=== PATIENT | female | born 1985 | race Caucasian/White ===

== ENCOUNTER 2018-07-31 07:56 | Emergency (ER) | payer MEDICARE, OTHER ==
[~2018-07-31] VITALS: Ht 167.6 cm; Wt 90.7 kg
[~2018-07-31 07:56] MED LIST: ALBU90OI; ALBU90OI INH; ALPR1 PO; CRUTCH4 USE; HYDACE5 PO; LEVSOD50 PO; LORA1 PO; MULVITMINE PO; NAPR500 PO; NAPR550 PO; OXYC10TA19; PREN-16 PO; PRENZ PO; PROM25 PO; Percocet 5-3251 EACH PO
[2018-07-31] MEDS ORDERED: ATEN50 PO (08:24)
[2018-07-31] MEDS ORDERED: Mobic15 MG PO (08:24)
[2018-07-31] MEDS ORDERED: CYCL10 PO (08:24)
[2018-07-31] MEDS ORDERED: GABA300 PO (08:24)
[2018-07-31] MEDS ORDERED: Ventolin/Prove6.7 GM (08:24)
[2018-07-31] MEDS ORDERED: IBUP800 PO (08:46)
[2018-07-31] MEDS ORDERED: Cleocin HCl300 MG PO (08:46)
[2018-07-31] MEDS ORDERED: HYDR1TAB94 PO (08:46)
== END 2018-07-31 09:12 | disposition home or self-care (01) ==
LOC: ER 07:56
DX: J34.0 Abscess, furuncle and carbuncle of nose (principal); F17.210 Nicotine dependence, cigarettes, uncomplicated; J45.909 Unspecified asthma, uncomplicated; Z79.899 Other long term (current) drug therapy
CPT/HCPCS: 96372; 99283-25; J1885

== ENCOUNTER → 2018-08-04 | Outpatient (CLI) | payer MEDICARE, OTHER ==
[~2018-08-04] MED LIST changes: +ATEN50 PO; +CYCL10 PO; +Cleocin HCl300 MG PO; +GABA300 PO; +HYDR1TAB94 PO; +IBUP800 PO; +Mobic15 MG PO; +Ventolin/Prove6.7 GM
== END | disposition home or self-care (01) ==
LOC: LAB EV 15:31 → LAB SHORT 15:31
DX: L03.211 Cellulitis of face (principal)
CPT/HCPCS: 87070

== ENCOUNTER → 2018-10-21 | Outpatient (CLI) | payer MEDICARE, OTHER ==
[2018-10-21 12:47] LABS: BASOPHILS ABSOLUTE AUTO 0.06 K/mm3 (0.00-0.23); BASOPHILS PERCENT AUTO 1 % (0-2); EOSINOPHILS ABSOLUTE AUTO 0.13 K/mm3 (0.00-0.68); EOSINOPHILS PERCENT AUTO 2 % (0-6); Hematocrit 37.4 % (33.0-51.0); Hemoglobin 12.9 g/dL (11.5-16.0); IMMATURE GRAN ABSOLUTE AUTO 0.03 K/mm3 (0.00-0.10); IMMATURE GRAN PERCENT AUTO 1 % (0-1); LYMPHOCYTES ABSOLUTE AUTO 3.03 K/mm3 (0.84-5.20); LYMPHOCYTES PERCENT AUTO 49 % (21-46); MONOCYTES ABSOLUTE AUTO 0.32 K/mm3 (0.16-1.47); MONOCYTES PERCENT AUTO 5 % (4-13); Mean Corpuscular HGB 31.2 pg (26.0-34.0); Mean Corpuscular HGB Conc 34.5 g/dL (31.5-36.5); Mean Corpuscular Volume 90 fL (80-100); NEUTROPHILS ABSOLUTE AUTO 2.57 K/mm3 (1.96-9.15); NEUTROPHILS PERCENT AUTO 42 % (41-73); Platelet Count 212 K/mm3 (150-400); RDW Coefficient Variation 14.7 % (11.7-14.2); RDW Standard Deviation 49.1 fL (35.1-46.3); Red Blood Cell Count 4.14 M/mm3 (3.80-5.20); White Blood Cell Count 6.14 K/mm3 (4.00-11.30)
== END | disposition home or self-care (01) ==
LOC: LAB SHORT 12:41 → LAB EV 12:41
PROVIDERS: Physician Assistant
DX: N93.9 Abnormal uterine and vaginal bleeding, unspecified (principal)
CPT/HCPCS: 84703; 85025

== ENCOUNTER 2021-05-14 14:28 | Emergency (ER) | payer MEDICARE, OTHER ==
[~2021-05-14] VITALS: Ht 167.6 cm; Wt 98.4 kg
== END 2021-05-14 16:32 | disposition home or self-care (01) ==
LOC: ER 14:28
DX: G89.29 Other chronic pain (principal); M54.50 Low back pain, unspecified; J45.909 Unspecified asthma, uncomplicated; Z88.5 Allergy status to narcotic agent; Z87.891 Personal history of nicotine dependence
CPT/HCPCS: 99283; A9270

== ENCOUNTER → 2024-11-07 | Outpatient (CLI) | payer MEDICARE | LOC: LAB SHORT 18:50 → LAB 18:50 | DX: N39.0 Urinary tract infection, site not specified (principal) | CPT/HCPCS: 87077; 87086; 87186 ==